=== PATIENT | male | born 1965 | race Caucasian/White ===

== ENCOUNTER 2018-04-05 19:46 | Emergency (ER) | payer OTHER ==
[~2018-04-05] VITALS: Ht 185.4 cm; Wt 100.7 kg
[~2018-04-05 19:46] MED LIST: ATIVAN0.5 MG PO; IBUPROFEN 800800 MG PO; NOHOMEMEDICATIONS; TRAMADOL 50 MG50 MG PO
[2018-04-05 20:06] VITALS: BP 180/112
[2018-04-05] MEDS ORDERED: PENICILLIN V P500 MG PO (21:01)
[2018-04-05] MEDS ORDERED: NORCO 5-325 TA1 EACH PO (21:01)
[2018-04-05] MEDS ORDERED: ZOFRAN ODT4 MG PO (21:01)
== END 2018-04-05 21:29 | disposition home or self-care (01) ==
LOC: ER 19:46
DX: S09.93XA Unspecified injury of face, initial encounter (principal); L29.9 Pruritus, unspecified; F41.9 Anxiety disorder, unspecified; Z87.891 Personal history of nicotine dependence; X58.XXXA Exposure to other specified factors, initial encounter; Y92.89 Other specified places as the place of occurrence of the external cause; Y93.89 Activity, other specified; Y99.8 Other external cause status

== ENCOUNTER → 2019-02-22 | Outpatient (CLI) | payer OTHER ==
[~2019-02-22] MED LIST changes: +NORCO 5-325 TA1 EACH PO; +PENICILLIN V P500 MG PO; +ZOFRAN ODT4 MG PO
== END ==
LOC: MRI 09:41
DX: M19.012 Primary osteoarthritis, left shoulder (principal)